=== PATIENT | female | born 1980 | race Two or more races ===

== ENCOUNTER 2017-08-08 13:21 | Emergency (ER) | payer BC ==
[~2017-08-08] VITALS: Ht 170.2 cm; Wt 82.1 kg
[2017-08-08 13:58] VITALS: BP 128/85
[2017-08-08] MEDS ORDERED: Lidocaine 1% Plain 30 ml INJ ONE (14:00)
[2017-08-08] MEDS ORDERED: CEPHALEXIN500 MG ORAL (14:37)
[2017-08-08] MEDS ORDERED: BACTRIM DS TAB1 EAC1 ORAL (14:37)
[2017-08-08] MEDS ORDERED: IBUPROFEN600 MG ORAL (14:59)
[2017-08-08] MEDS ORDERED: Norco 5mg/325mg tab ORAL ONE (15:00)
[2017-08-08 15:05] VITALS: BP 116/76
--- NOTE | 2017-08-08 18:16 | Emergency Room Report ---
History of Present Illness General Chief Complaint: Skin Rash/Abscess Source: Patient Present Illness HPI 28-year-old female presents to ER for drainage of abscess on the posterior. Patient states she was referred to ER by primary care physician for drainage; reports PCP was able to do in clinic. Patient complains of mild TTP. Patient denies pain with neck movement. Patient denies fever, decreased neck ROM, chest pain, rash, SOB. Allergies: Coded Allergies: No Known Allergies (Unverified , 08/08/17) Patient History Past Medical History: see triage record Social History: Denies: smoking, alcohol use, drug use Last Menstrual Period: 08/01/2017 Immunizations: UTD Reviewed Nursing Documentation: PMH: Agreed, PSxH: Agreed Nursing Documentation-PMH Past Medical History: No Stated History Review of Systems All Other Systems: negative except mentioned in HPI Physical Exam Vital Signs Date Time Temp Pulse Resp B/P (MAP) Pulse Ox O2 Delivery O2 Flow Rate FiO2 08/08/17 13:53 99.7 89 16 128/85 95 Room Air Sp02 EP Interpretation: reviewed, normal General Appearance: no apparent distress, alert, GCS 15, non-toxic Head: normocephalic, atraumatic Eyes: bilateral eye normal inspection, bilateral eye PERRL Neck: full range of motion Respiratory: speaking full sentences Musculoskeletal: back normal, gait/station normal, normal range of motion Skin: no rash, normal turgor, other - Posterior right Neck: 3cm abscess with elevated central point and white head, indurated, erythematous, no blisters, no vesicles. Procedures Incision and Drainage Incision and Drainage : Consent: Verbal Site: Posterior right neck. Blade Size: 11 I & D Procedure: betadine prep, sterile drapes applied, sterile dressing applied Wound Location: neck Wound's Depth, Shape: superficial Wound Length (cm): 3 Wound Explored: contaminated Anesthesia: 1% Lidocaine Volume Anesthetic (ccs): 2 Patient Tolerated: Well Complications: None Medical Decision Making PA Attestation Dr. Torre is my supervising Physician whom patient management has been discussed with. Diagnostic Impression: Primary Impression: Abscess ER Course Pt. presents to the ED c/o abscess. Ddx considered but are not limited to abscess, cellulitis, rash, faruncle. Vital signs: are WNL, pt. is afebrile H&PE are most consistent with abscess. ORDERS: [place]. Patient drove herself to ER and elected to take [place] after driving herself home for pain. ED INTERVENTIONS: I&D of abscess, wound clean and dressed. DISCHARGE: At this time pt. is stable for d/c to home. Will provide printed patient care instructions, and any necessary prescriptions. Care plan and follow up instructions have been discussed with the patient prior to discharge Last Vital Signs Date Time Temp Pulse Resp B/P (MAP) Pulse Ox O2 Delivery O2 Flow Rate FiO2 08/08/17 15:05 99.7 84 16 116/76 95 Room Air Disposition: HOME, SELF-CARE Condition: Improved Scripts Ibuprofen* (MOTRIN*) 600 Mg Tablet 600 MG ORAL Q6H Y for For Pain, #30 TAB Prov: Titus Dougherty 08/08/17 Trimethoprim/Sulfamethoxazole 160/800* (BACTRIM DS TABLET*) 1 Each Tablet 1 TAB ORAL TWICE A DAY for 7 Days, #14 TAB Prov: Titus Dougherty 08/08/17 Cephalexin* (KEFLEX*) 500 Mg Capsule 500 MG ORAL EVERY 12 HOURS for 7 Days, #14 CAP 0 Refills Prov: Titus Dougherty 08/08/17 Patient Instructions: Abscess Additional Instructions: Take medications as directed. You incision site may continue to drain for several days. Do not emerge in water x 1 week. May require surgical removal of capsule if your symptoms return. Follow up with your PMD in 3-5 days Return Promptly to the ED with worsening or new symptoms. Titus Dougherty Aug 08, 2017 18:16
== END 2017-08-08 15:06 | disposition home or self-care (01) ==
LOC: EMR 14:00
DX: L02.11 Cutaneous abscess of neck (principal)
CPT/HCPCS: 10060; 99283; J2001